=== PATIENT | female | born 1995 | race Caucasian/White ===

== ENCOUNTER 2024-12-03 17:48 | Emergency (ER) | payer OTHER ==
[~2024-12-03] VITALS: Ht 154.9 cm; Wt 56.8 kg
[2024-12-03] MEDS: POVIDONE-IODINE 10% 15 ML SOLUTION UD TP ONE (21:23)
[2024-12-03] MEDS: LIDOCAINE 1% 10 ML VIAL ID ONE (21:23)
[2024-12-04] MEDS ORDERED: ACETAMINOPHEN 500 MG TABLET ONE (02:56)
[2024-12-04 08:33] VITALS: BP 118/70; PULSE 80; RESP 16; O2SAT 99
== END 2024-12-04 08:38 ==
LOC: EMS 17:48
DX: O9A.212 Injury, poisoning and certain other consequences of external causes complicating pregnancy, second trimester (principal); S90.852A Superficial foreign body, left foot, initial encounter; L02.612 Cutaneous abscess of left foot; L03.032 Cellulitis of left toe; F20.9 Schizophrenia, unspecified; Z3A.24 24 weeks gestation of pregnancy; W45.8XXA Other foreign body or object entering through skin, initial encounter; Y93.89 Activity, other specified; Y92.89 Other specified places as the place of occurrence of the external cause; Y99.8 Other external cause status
CPT/HCPCS: 99284; 73660; J3490; A4247